=== PATIENT | female | born 1975 | race Caucasian/White ===

== ENCOUNTER 2016-06-29 00:17 | Inpatient (IN) ==
[2016-06-29] MEDS ORDERED: HYDROmorphone 2 MG/1 ML VIAL IV STA (00:40)
[2016-06-29] MEDS ORDERED: ONDANSETRON 4 MG/2 ML VIAL IV STA (00:41)
[2016-06-29] MEDS ORDERED: ONDANSETRON 4 MG/2 ML VIAL ONE ×3 (00:42→11:43)
[2016-06-29] MEDS ORDERED: HYDROmorphone 2 MG/1 ML VIAL ONE ×2 (00:45→11:43)
[2016-06-29] MEDS ORDERED: MAGNESIUM HYDROXIDE SUSP 30 ML UDCUP PO PRN ×2 (01:10→10:31)
[2016-06-29] MEDS ORDERED: ONDANSETRON 4 MG/2 ML VIAL IV PRN ×2 (01:10→12:00)
--- NOTE | 2016-06-29 01:10 | Emergency Department Note ---
Gonzalo Luque Kasabria, am scribing for, and in the presence of, Mikaela Stoddard DO 00 :38. IRichi Debra, DO, personally performed the services described in this documentation, ascribed by Gianni Sánchez in my presence, and it is both accurate and complete . Arrival - Arrival Chief Complaint: Extremity Injury Stated Complaint: poss.broken right arm ED Nursing Triage Note: C/C fell, broke right wrist. Deformity noted to right wrist. Mode of Arrival: Ambulatory Limitations: No Limitations Source: Patient Time Seen by Provider: 06/29/16 00:30 - History of Present Illness HPI Narrative: This is a 40 y/o white female presenting to the ED with c/o right wrist deformity that onset tonight when she was wrestling with her children. She states she fell on the hardwood floor and broke her fall with her right wrist. There is edema present and tenderness. Pt has full ROM. She denies hitting her head, LOC, shoulder pain, back, and hip pain. Her PMHx consist of migraines. Consistency: constant Severity: moderate Allergies/Adverse Reactions: Allergies Allergy/AdvReac Type Severity Reaction Status Date / Time Dairy Foods Allergy Unknown/Unable Verified 06/29/16 00:25 to obtain penicillin G Allergy ANAPHYLAXIS Verified 06/29/16 00:24 Review of System - Review of System 12 point system: reviewed and no additional remarkable complaints except as stated - Review of System Constitutional: Absent: chills, fever, weakness Eyes: Absent: vision change Head/Ears/Nose/Throat: Absent: nasal drainage Respiratory: Absent: cough, wheezing Cardiovascular: Absent: chest pain, dyspnea on exertion, syncope Gastrointestinal: Absent: abdominal pain, nausea, vomiting Genitourinary female: Absent: dysuria Musculoskeletal: Present: arm pain (right wrist deformity ). Absent: back pain , leg pain, neck pain Neurological: Absent: headache, weakness, confusion, abnormal gait, vertigo Psychiatric: Absent: anxiety Endocrine: Absent: fatigue Hematological/Lymphatic: Absent: easy bleeding Allergic/Immunologic: Absent: facial swelling Medical,Surgical,& Family Hx - Medical History Neurology: History of: Migraine HEENT: History of: HEENT Problems (sinus surgery at 14 y/o) - Surgical History Reproductive Surgeries: Surgical HX of;: Dilation and Curettage, Gynecologic Surgery (LEAP,), Hysterectomy - Social History Smoking Status: Never smoker Frequency of Alcohol Use: None Type of Drug Use: None Exam Vital Signs: Vital Signs Temperature 98.8 F 06/29/16 01:02 Pulse Rate 108 H 06/29/16 01:02 Respiratory Rate 20 06/29/16 01:02 Blood Pressure 142/89 06/29/16 01:02 O2 Sat by Pulse Oximetry 99 06/29/16 00:20 - General General appearance: alert, in no apparent distress - Head Head exam: Present: atraumatic, normocephalic, normal inspection - Eye Eye exam: Present: normal appearance, PERRL, EOMI - ENT ENT exam: Present: normal exam, normal oropharynx, mucous membranes moist, TM's normal bilaterally, normal external ear exam - Neck Neck exam: Present: normal inspection, full ROM, trachea midline. Absent: tenderness - Chest Chest inspection: Present: normal inspection, symmetric chest wall rise. Absent : tenderness - Respiratory Respiratory exam: Present: normal lung sounds bilaterally - Cardiovascular Cardiovascular exam: Present: regular rate, normal rhythm, normal heart sounds - Abdominal Exam Abdominal exam: Present: soft, normal bowel sounds. Absent: distention, tenderness - Extremities Exam Extremities exam: Present: full ROM, normal capillary refill (less than 2 seconds). Absent: tenderness, pedal edema, calf tenderness - Expanded Upper Right Upper Extremity Forearm/Wrist exam: Present: full ROM, tenderness, swelling, deformity. Absent : normal inspection - Back Exam Back exam: Present: normal inspection, full ROM. Absent: tenderness - Neurological Exam Neurological exam: Present: alert, oriented X3, CN II-XII intact, normal gait, reflexes normal - Psychiatric Psychiatric exam: Present: normal affect, normal mood - Skin Skin exam: Present: warm, dry, intact, normal color. Absent: rash, diaphoresis Disposition Clinical Impression: Radius and ulna distal fracture Case discussed with: patient, patient's family Disposition: Still a Patient Condition: Stable Time of Disposition: 01:09
[2016-06-29 01:16] LABS: Basophils % 0.3 % (0.0-0.8); Eosinophils # 0.1 10*3/uL (0.0-0.87); Hematocrit 38.9 VOL% (35.7-47.0); Hemoglobin 12.6 GM/DL (12.0-16.0); Immature Granulocytes % 0.2 %; Immature Granulocytes Absolute 0.01 #; Lymphocytes # 1.2 10*3/uL (1.4-4.0); Lymphocytes % 20.7 % (21.3-54.2); Mean Corpuscular HGB Conc 32.4 GM/DL (32-36); Mean Corpuscular Hemoglobin 30 PG (27-34); Mean Platelet Volume 12.3 FL (9.6-12.0); Monocytes # 0.4 10*3/uL (0.11-0.8); Monocytes % 7.3 % (1.7-12.7); Neutrophils # 4.2 10*3/uL (1.4-7.4); Neutrophils % 69.5 % (38.7-73.9); Platelet Count 199 T/CUMM (130-400); Red Blood Count 4.23 MC/CUMM (3.8-5.5); Red Cell Distribution Width 13.2 % (9.3-17.3)
[2016-06-29 02:05] LABS: Alanine Aminotransferase 21 U/L (13-56); Albumin 4.2 G/DL (3.4-5.0); Alkaline Phosphatase 54 U/L (45-117); Aspartate Amino Transferase 19 U/L (0-37); Bilirubin,Total < 0.39 MG/DL (0.2-1.0); Blood Urea Nitrogen 29 MG/DL (7-18); Calcium 9.2 MG/DL (8.5-10.1); Glucose 110 MG/DL (74-106); Osmolality,Calculated 296.6 MOS/KG (273-304); Sodium 146 MMOL/L (136-145); Total Protein 6.7 G/DL (6.4-8.3)
[2016-06-29 02:07] LABS: INR 1.1; PT Patient Result 11.2 SECS; Partial Thromboplastin Time 25.7 SECS (0-40)
[2016-06-29] MEDS: SODIUM CHLORIDE 0.9% 1,000 ML IV SCH ×3 (02:24→22:58)
[2016-06-29] MEDS: HYDROmorphone 2 MG/1 ML VIAL IV PRN ×2 (03:54→06:57)
[2016-06-29 06:44] LABS: Apearance,Urine CLEAR (Clear); Bilirubin,Urine Negative (Negative); Blood, Urine Negative (Negative); Glucose,Urine (UA) Negative (Negative); Ketones,Urine Negative (Negative); Mucus,Urine Occasional /LPF (Occasional); Nitrite,Urine Negative (Negative); Protein,Urine Negative; RBC,Urine <1 /HPF (0-4); Squamous Epithelial Cell,Urine Occasional /HPF (0-10); Urine Color Yellow (Yellow); Urine Specific Gravity 1.019 (1.001-1.035); Urine Urobilinogen < 2.0 EU/DL (0.2-1.0); WBC,Urine 1 /HPF (0-6)
--- NOTE | 2016-06-29 07:28 | Orthopedic History & Physical ---
History of Present Illness Chief complaint: Right distal radius/ulna fracture History of present illness: Ms. Peña is a 40 year old female............. see dictated report Home Medications Medication Instructions Recorded Confirmed Type B Complex with Vitamin C [Vitamin 1 each PO BEDTIME 06/29/16 06/29/16 History B-Complex with Vit C] Bupropion HCl [Bupropion Xl] 150 mg PO DAILY 06/29/16 06/29/16 History Ergocalciferol (Vitamin D2) 2,000 unit PO BEDTIME 06/29/16 06/29/16 History [Vitamin D2] HydrOXYzine PAMOATE CAP [Vistaril 25 mg PO Q6HR PRN 06/29/16 06/29/16 History Cap] Magnesium 750 mg PO BEDTIME 06/29/16 06/29/16 History Melatonin 10 mg PO BEDTIME PRN 06/29/16 06/29/16 History Montelukast Tab [Singulair Tab] 10 mg PO BEDTIME 06/29/16 06/29/16 History Propranolol Tab [Inderal Tab] 40 mg PO BID 06/29/16 06/29/16 History SUMAtriptan TAB [Imitrex Tab] 100 mg PO BID PRN 06/29/16 06/29/16 History Topiramate [Topamax] 50 mg PO DAILY 06/29/16 06/29/16 History Topiramate [Topamax] 100 mg PO BEDTIME 06/29/16 06/29/16 History Allergies Allergy/AdvReac Type Severity Reaction Status Date / Time Dairy Foods Allergy Unknown/Unable Verified 06/29/16 00:25 to obtain penicillin G Allergy ANAPHYLAXIS Verified 06/29/16 00:24 Medical,Surgical,& Family Hx - Medical History Neurology: History of: Migraine, Seizures HEENT: History of: HEENT Problems (sinus surgery at 14 y/o, tmj) Respiratory: History of: Asthma (as a child) Musculoskeletal: History of: Back/Neck Problems (neck injury at age 17) Hematology: History of: Anemia Reproductive: History of: Endometriosis, Reproductive Cancer (cervical) - Surgical History Reproductive Surgeries: Surgical HX of;: Breast Surgery (drainage of cyst in left breast), Dilation and Curettage, Gynecologic Surgery (LEAP,), Hysterectomy - Family History Family History: Reports;: Family Diabetes (mother), Family Heart Disease (both families), Family Hypertension (brother), Family Stroke (father's side) Denies;: Additional Family History (brothers have sleep apnea, father has brain shunt) Comment Only: Family Cancer (mother's side) - Social History Smoking Status: Never smoker Frequency of Alcohol Use: None Type of Drug Use: None Exam - Constitutional Vitals: Period Temp Pulse Resp BP Sys/Sierra Pulse Ox Last 24 Hr 98.1 F-98.2 F 80-86 19-22 115-126/76-97 100-100 Results - Labs CBC & BMP: 06/29/16 00:48 06/29/16 00:48
--- NOTE | 2016-06-29 07:29 | XRay Report ---
XR wrist 3V RT Clinical Information: injury, Right wrist pain Comparison: None available Findings: Acute comminuted fracture of the distal radius and ulna with posterior angulation and overlying soft tissue swelling. Carpal alignment within the wrist appears intact. No additional fractures are identified. Impression: As above. PROCEDURE INTERPRETED AT [facility] DEPARTMENT OF RADIOLOGY Final Report Signed by: Theo Duong
[2016-06-29] MEDS ORDERED: CLINDAMYCIN INJ 600 MG in PREMIX 1 EACH IV ONE (08:50)
[2016-06-29] MEDS ORDERED: PROMETHAZINE 25 MG/1 ML VIAL IM PRN (10:31)
[2016-06-29] MEDS ORDERED: HydrOXYzine PAMOATE 25 MG CAPSULE PO PRN (10:33)
[2016-06-29] MEDS ORDERED: GLYCOPYRROLATE 0.4 MG/2 ML VIAL ONE (10:38)
[2016-06-29] MEDS ORDERED: PROPOFOL 200 MG/20 ML VIAL IV ONE (10:38)
[2016-06-29] MEDS ORDERED: LIDOCAINE 2% 5 ML VIAL ONE (10:38)
[2016-06-29] MEDS ORDERED: SEVOFLURANE 1 UNIT/15 MINUTE INH ONE (11:32)
[2016-06-29] MEDS ORDERED: fentaNYL 100 MCG/2 ML VIAL ONE (11:32)
[2016-06-29] MEDS ORDERED: LACTATED RINGERS 1,000 ML IV ONE (11:32)
[2016-06-29] MEDS ORDERED: MIDAZOLAM 2 MG/2 ML VIAL ONE (11:33)
[2016-06-29] MEDS ORDERED: KETOROLAC 30 MG/1 ML VIAL ONE (11:53)
[2016-06-29] MEDS ORDERED: ACETAMINOPHEN 1,000 MG/100 ML VIAL IV ONE (11:53)
[2016-06-29] MEDS ORDERED: HYDROmorphone 2 MG/1 ML VIAL IV PRN (12:00)
[2016-06-29] MEDS ORDERED: KETOROLAC 30 MG/1 ML VIAL IV ONE (12:01)
[2016-06-29] MEDS ORDERED: GABAPENTIN 400 MG CAPSULE PO ONE (12:01)
[2016-06-29] MEDS ORDERED: ACETAMINOPHEN INJ 1,000 MG in PREMIX 1 EACH IV ONE (12:08)
--- NOTE | 2016-06-29 12:30 | Anesthesia ---
Anesthesia Post OP - Post Ansesthetic Evaluation Patient seen in post op: Yes Resp: within normal limits CV: within normal limits Mental: within normal limits Temp: within normal limits Hafo-Tx-Axbdhyfah: within normal limits Nausea and Vomiting: within normal limits Pain: within normal limits
[2016-06-29] MEDS ORDERED: MELATONIN 3 MG TABLET PO PRN (14:00)
--- NOTE | 2016-06-29 15:01 | XRay Report ---
Exam: XR wrist 3V RT Date: 06/29/2016 12:00 AM Comparison: None Indication: ORIF right wrist Technique:[Fluoroscopy time of 6.6 seconds documented. 2 films submitted for review in the AP and lateral projections.] Findings: Interval insertion of a metallic compression plate with screws in the volar aspect of the distal right radius. The comminuted displaced fracture of the distal right radius appears to be in satisfactory position and alignment for healing. Also there is improved alignment of the recently displaced fracture of the distal left ulna including the ulnar styloid. Impression: Satisfactory internal fixation of the displaced fracture of the distal right radius with improved alignment of the displaced fracture of the distal right ulna. PROCEDURE INTERPRETED AT [facility] DEPARTMENT OF RADIOLOGY Final Report Signed by: Dr. Ruth Owen
--- NOTE | 2016-06-29 15:28 | Orthopedic Progress Note ---
Orthopedics - Subjective Interval history: Postop comfortable sensibility still subjectively diminished light touch capillary refill brisk splint is clean and dry plan for discharge in a.m. pain control tonight Exam - Constitutional Vitals: Period Temp Pulse Resp BP Sys/Sierra Pulse Ox Last 24 Hr 97.2 F-98.2 F 80-98 12- 99-126/66-97 99-100 Results - Labs CBC & BMP: 06/29/16 00:48 06/29/16 00:48 Specialty Discharge - Follow Up or Referrals Follow up with: Patrice Astorga Jr., MD [Physician] - (July 07)
[2016-06-29] MEDS: CLINDAMYCIN INJ 600 MG in PREMIX 1 EACH IV SCH ×2 (16:21→22:09)
--- NOTE | 2016-06-29 16:29 | Operative Note ---
DATE: 06/29/2016 PREOPERATIVE DIAGNOSIS: COMMINUTED DISTAL RADIUS FRACTURE AND ULNA, RIGHT WRIST. POSTOPERATIVE DIAGNOSIS: SAME. OPERATIVE PROCEDURE: ORIF right wrist (3 or more fragments). SURGEON: Patrice Astorga Jr., MD ANESTHESIA: General. INDICATIONS: A 40-year-old white female injured last night when she fell on her outstretched right arm. She had immediate pain with deformity. Radiographs confirming a severely displaced comminuted distal radius fracture to the right wrist. I have discussed with her preoperatively the need for O RIF. DESCRIPTION OF PROCEDURE: The patient taken to the operating room and under general anesthetic, th e right upper extremity prepped and draped in the usual sterile manner. She received Cleocin preope ratively. The limb was elevated, exsanguinated, and tourniquet inflated to 250 mmHg. A Michael appro ach was performed. The skin incised sharply, the FCR identified and dissection carried down to the radius, just radial to the FCR. Care was taken to protect the radial artery. The pronator was refl ected off the volar wrist and it was reduced. A Synthes volar locking plate was used to secure the reduction. It was positioned and then checked fluoroscopically. It was secured into the shaft with 3 bicortical screws and multiple locking pegs in the distal fragment. Permanent fluoroscopy pictur es were preserved for her record confirming satisfactory reduction and internal fixation. The wound was then irrigated. Hemostasis achieved after deflating the tourniquet at 20 minutes. The wound w as then closed with 2-0 Vicryl and rafael. Sterile dressing and a sugar-tong splint were applied. She was awakened and taken to the recovery room in stable condition.
--- NOTE | 2016-06-29 17:05 | History and Physical Report ---
DATE OF ADMISSION: 06/29/2016 HISTORY OF PRESENT ILLNESS: A 40-year-old white female who fell while at home. She was playing wi th her children landing on her outstretched right arm. She had immediate pain with deformity about the right wrist and evaluated in [facility] and diagnosed with a comminuted distal ra dius and ulnar fracture. She has been splinted and admitted. PAST MEDICAL HISTORY: 1. Depression. 2. Itching. 3. Migraines. HOME MEDICATIONS: 1. Topamax. 2. Bupropion. 3. Vistaril. 4. Vitamins. 5. Singulair. 6. Imitrex. MEDICATION ALLERGIES: PENICILLIN. FOOD ALLERGIES: DAIRY. PHYSICAL EXAMINATION GENERAL: A well-developed, nourished female in moderate discomfort secondary to her right wrist. HEENT: Well-nourished. CHEST: Clear. HEART: Regular rhythm. ABDOMEN: Soft and nontender. GENITOURINARY/RECTAL: Deferred. EXTREMITIES: She has decreased motion about the right wrist secondary to pain with mildly subjectiv stephanie diminished light touch sensibility in all digits. Capillary refill is brisk. No pain more prox imal about the elbow or humerus. No pain about the left upper extremity or either lower extremity. RADIOGRAPHS: Confirm a comminuted distal radius and ulnar fracture, right wrist. DIAGNOSES: COMMUNICATED DISTAL RADIUS FRACTURE AND ULNAR FRACTURE, RIGHT WRIST. RECOMMENDATIONS: I have discussed with her the diagnosis, treatment, and recommendations including the need for ORIF. We discussed the nature of the procedure and discussed the risks, benefits, and alternatives. All her questions were answered and she is ready to proceed with ORIF right wrist la tanvir today.
[2016-06-29] MEDS: PROPRANOLOL 20 MG TABLET PO SCH (20:36)
[2016-06-29] MEDS ORDERED: CHOLECALCIFEROL 1,000 UNIT TABLET PO SCH (21:00)
[2016-06-29] MEDS ORDERED: MULTIVITAMIN (BEROCCA) TABLET PO SCH (21:00)
[2016-06-29] MEDS ORDERED: MONTELUKAST 10 MG TABLET PO SCH (21:00)
[2016-06-29] MEDS ORDERED: TOPIRAMATE 100 MG TABLET PO SCH (21:00)
[2016-06-29] MEDS ORDERED: MAGNESIUM GLUCONATE 500 MG TABLET PO SCH (21:00)
[2016-06-30] MEDS: CLINDAMYCIN INJ 600 MG in PREMIX 1 EACH IV SCH (03:59)
--- NOTE | 2016-06-30 07:06 | Orthopedic Progress Note ---
Orthopedics - Subjective Interval history: Digital swelling and subjective numbness is noted fingers are supple no evidence of compartment or carpal tunnel issues. Discussed importance of elevation and digital motion splint care also discussed. Will discharge later today follow-up 1 week Exam - Constitutional Vitals: Period Temp Pulse Resp BP Sys/Sierra Pulse Ox Last 24 Hr 97.2 F-99.6 F 59-98 12-20 79-115/43-79 96-100 Results - Labs CBC & BMP: 06/29/16 00:48 06/29/16 00:48 Specialty Discharge - Follow Up or Referrals Follow up with: Patrice Astorga Jr., MD [Physician] - (July 07)
--- NOTE | 2016-06-30 07:08 | Discharge Summary ---
Hospital Course - Hospital Course Hospital Course: Admitted after fall underwent ORIF right wrist discharge home Specialty Discharge - Follow Up or Referrals Follow up with: Patrice Astorga Jr., MD [Physician] - (July 07) Discharge Plan - Discharge Data Disposition: Disch To Home/Self Care Condition at Discharge: Stable Discharge Diet: advance to your usual diet Activity: increase activity as tolerated (Routine splint care), no lifting Hygiene: keep area(s) dry Weight Bearing at Discharge: weight bear as tolerated - Discharge Medications New HYDROcodone/ACETAMIN 7.5-325 [Emeigh 7.5-325] 1 tablet PO Q4H PRN #30 tablet PRN Reason: Pain Moderate (4-7) Continue HydrOXYzine PAMOATE CAP [Vistaril Cap] 25 mg PO Q6HR PRN PRN Reason: Migraine Headache Bupropion HCl [Bupropion Xl] 150 mg PO DAILY Topiramate [Topamax] 100 mg PO BEDTIME Topiramate [Topamax] 50 mg PO DAILY Melatonin 10 mg PO BEDTIME PRN PRN Reason: Sleep Propranolol Tab [Inderal Tab] 40 mg PO BID Montelukast Tab [Singulair Tab] 10 mg PO BEDTIME B Complex with Vitamin C [Vitamin B-Complex with Vit C] 1 each PO BEDTIME SUMAtriptan TAB [Imitrex Tab] 100 mg PO BID PRN PRN Reason: Migraine Headache Ergocalciferol (Vitamin D2) [Vitamin D2] 2,000 unit PO BEDTIME Magnesium 750 mg PO BEDTIME - Follow Up or Referral Follow Up: Patrice Astorga Jr., MD [Physician] - (July 07) - Forms/Instructions Instructions: Open Reduction and Internal Fixation of a Wrist Fracture (DC) Additional Discharge Instructions: Discharge home discharge medications Narco 7.5 #30 no refills.as tolerated routine splint care elevate arm sling follow-up 1 week Exam - Constitutional Vitals: Period Temp Pulse Resp BP Sys/Sierra Pulse Ox Last 24 Hr 97.2 F-99.6 F 59-98 12-20 79-115/43-79 96-100 DS: Provider Date of admission: 06/29/16 01:14 Primary care physician: Nonstaff Physician Attending physician on admission: Patrice Astorga Jr., MD Consults: 06/29/16 10:31 Consult to Occupational Therapy [CONS] Routine Reason for Occupational Therapy: Evaluate and Treat Consult to Physical Therapy [CONS] Routine Reason for Physical Therapy: Evaluate and Treat 06/29/16 10:47 Consult to Pharmacy [CONS] Routine Reason for Pharmacy Consult: Adjust Meds Renal Funct Discharging clinician: Patrice Astorga Jr., MD
[2016-06-30] MEDS: SODIUM CHLORIDE 0.9% 1,000 ML IV SCH (07:42)
[2016-06-30 07:58] VITALS: BP 85/50
[2016-06-30] MEDS ORDERED: TOPIRAMATE 25 MG TABLET PO SCH (09:00)
[2016-06-30] MEDS ORDERED: buPROPion XL 150 MG TABLET PO SCH (09:00)
[2016-06-30] MEDS: PROPRANOLOL 20 MG TABLET PO SCH (09:03)
== END 2016-06-30 11:45 | disposition home or self-care (01) | DRG 512 ==
LOC: N.ED 00:17 → N.EDINP 01:10 → N.3E 01:49
PROVIDERS: ADMIT Orthopaedic Surgery; ATTEND Orthopaedic Surgery